=== PATIENT | female | born 1940 | race Hispanic/Latino ===

== ENCOUNTER 2021-07-08 12:57 | Day surgery (SDC) | payer MEDICARE ==
[2021-07-08] MEDS ORDERED: Lidocaine 1% PF 5 ML VIAL ONE (13:22)
[2021-07-08] MEDS ORDERED: Sodium Bicarbonate 2.5 MEQ/5 ML VIAL ONE (13:23)
[2021-07-08] MEDS ORDERED: Albumin 25% 100 ML ONE (14:13)
== END 2021-07-08 14:47 | disposition home or self-care (01) ==
LOC: CSHULT 12:57
PROVIDERS: ATTEND Physician Assistant Medical
DX: R18.8 Other ascites (principal); K74.60 Unspecified cirrhosis of liver; F32.A Depression, unspecified; E11.9 Type 2 diabetes mellitus without complications; I85.10 Secondary esophageal varices without bleeding; K76.6 Portal hypertension; K31.89 Other diseases of stomach and duodenum
CPT/HCPCS: 49083; P9047